=== PATIENT | male | born 1945 | race Caucasian/White ===

== ENCOUNTER 2017-07-19 10:38 | Emergency (ER) | payer MEDICARE ==
--- NOTE | 2017-07-19 10:44 | EDM.PDOC ---
ED HPI GENERAL MEDICAL PROBLEM - General Chief Complaint: Respiratory Problem Stated Complaint: DIFF BREATHING Time Seen by Provider: 07/19/17 10:44 Source of Information: Reports: Patient - History of Present Illness INITIAL COMMENTS - FREE TEXT/NARRATIVE: HISTORY AND PHYSICAL: History of present illness: [Patient with history of COPD presents with shortness of breath after a short ambulation of 15-20 feet on arrival, he has seen his new primary care provider Dr. Geiger placed him on a steroid and antibiotic for bronchitis, however it is learned and I'm not sure if Dr. Geiger new this that the patient had discontinued his Advair and recently moved from [facility] stopping the Advair, previous CT scan of the chest was read as essentially benign as they were looking for a pulmonary nodule that was seen on chest x-ray however however there is no mention of COPD/emphysema/fibrosis which he does significant emphysema changes as well as fibrosis No fever nausea vomiting chills sweats no chest pain headache dizziness palpitation no bowel or urine symptoms ] Patient does have Advair, DuoNeb's, albuterol nebs at his disposal he just has not been using them since moving from [place] as he had felt that moving from [place] would fix his lungs Review of systems: As per history of present illness and below otherwise all systems reviewed and negative. Past medical history: As per history of present illness and as reviewed below otherwise noncontributory. Surgical history: As per history of present illness and as reviewed below otherwise noncontributory. Social history: No reported history of drug or alcohol abuse. Family history: As per history of present illness and as reviewed below otherwise noncontributory. Physical exam: HEENT: Atraumatic, normocephalic, pupils reactive, negative for conjunctival pallor or scleral icterus, mucous membranes moist, throat clear, neck supple, nontender, trachea midline. Lungs: Clear to auscultation, breath sounds equal bilaterally, chest nontender. Heart: S1S2, regular, negative for clicks, rubs, or JVD. Abdomen: Soft, nondistended, nontender. Negative for masses or hepatosplenomegaly. Negative for costovertebral tenderness. Pelvis: Stable nontender. Genitourinary: Deferred. Rectal: Deferred. Extremities: Atraumatic, negative for cords or calf pain. Neurovascular unremarkable. Neuro: Awake, alert, oriented. Cranial nerves II through XII unremarkable. Cerebellum unremarkable. Motor and sensory unremarkable throughout. Exam nonfocal. Diagnostics: [CBC CMP UA troponin BN peptide influenza EKG chest 1 view ] Therapeutics: [DuoNeb Solu-Medrol 125 mg IV Normal saline 500 mL bolus ] Impression: [Paraseptal Emphysema Pulmonary fibrosis Medication noncompliance Definitive disposition and diagnosis as appropriate pending reevaluation and review of above. - Related Data Allergies Allergy/AdvReac Type Severity Reaction Status Date / Time No Known Allergies Allergy Verified 07/19/17 10:47 Home Meds: Home Meds Lisinopril/Hydrochlorothiazide [Lisinopril-Hctz 20-25 mg Tab] 07/19/17 [History ] ED ROS GENERAL - Review of Systems Review Of Systems: ROS reveals no pertinent complaints other than HPI. ED EXAM, GENERAL - Physical Exam Exam: See Below Course - Vital Signs Last Recorded V/S: Last Vital Signs Temp 98.9 F 07/19/17 10:48 Pulse 103 H 07/19/17 10:48 Resp 20 07/19/17 10:48 BP 128/62 07/19/17 10:48 Pulse Ox 94 L 07/19/17 10:48 - Orders/Labs/Meds Orders: Active Orders 24 hr Category Date Time Status EKG Documentation Completion [RC] STAT Care 07/19/17 10:42 Active RT Aerosol Therapy [RC] ASDIRECTED Care 07/19/17 10:52 Active CTA Chest W WO Contrast [Ang Chest] [CT] Stat Exams 07/19/17 12:40 Taken Chest 1V Frontal [CR] Stat Exams 07/19/17 10:42 Taken Sodium Chloride 0.9% [Normal Saline] 500 ml Med 07/19/17 11:00 Active IV STAT Medication Orders Sodium Chloride (Normal Saline) 500 mls @ 999 mls/hr IV STAT LILIANA Last Admin: 07/19/17 11:07 Dose: 999 mls/hr Labs: Laboratory Tests 07/19/17 07/19/17 07/19/17 Range/Units 11:10 11:10 11:10 WBC 7.14 (4.0-11.0) K/uL RBC 4.46 L (4.50-5.90) M/uL Hgb 13.1 (13.0-17.0) g/dL Hct 39.1 (38.0-50.0) % MCV 87.7 (80.0-98.0) fL MCH 29.4 (27.0-32.0) pg MCHC 33.5 (31.0-37.0) g/dL RDW Std Deviation 45.5 (28.0-62.0) fl RDW Coeff of Abhay 14 (11.0-15.0) % Plt Count 209 (150-400) K/uL MPV 10.10 (7.40-12.00) fL Neut % (Auto) 67.3 (48.0-80.0) % Lymph % (Auto) 19.9 (16.0-40.0) % [place] % (Auto) 8.7 (0.0-15.0) % Eos % (Auto) 3.5 (0.0-7.0) % Baso % (Auto) 0.6 (0.0-1.5) % Neut # (Auto) 4.8 (1.4-5.7) K/uL Lymph # (Auto) 1.4 (0.6-2.4) K/uL [place] # (Auto) 0.6 (0.0-0.8) K/uL Eos # (Auto) 0.3 (0.0-0.7) K/uL Baso # (Auto) 0.0 (0.0-0.1) K/uL Nucleated RBC % 0.0 /100WBC Nucleated RBCs # 0 K/uL INR 0.96 D-Dimer, Quantitative (0.0-0.52) mg/LFEU Sodium 138 (136-146) mmol/L Potassium 3.8 (3.5-5.1) mmol/L Chloride 102 (98-110) mmol/L Carbon Dioxide 24 (21-31) mmol/L BUN 22 (6.0-23.0) mg/dL Creatinine 1.2 (0.6-1.5) mg/dL Est Cr Clr Drug Dosing 55.42 mL/min Estimated GFR (MDRD) 59.9 ml/min Glucose 244 H (60-110) mg/dL Calcium 9.7 (8.8-10.8) mg/dL Total Bilirubin 0.5 (0.1-1.5) mg/dL AST 21 (5-40) IU/L ALT 24 (8-54) IU/L Alkaline Phosphatase 47 (40-150) Creatine Kinase 120 (9-236) IU/L CK-MB (CK-2) 2.8 (0-6.6) ng/ml Troponin I < 0.10 (0.0-0.29) NG/ML B-Natriuretic Peptide (<100) PG/ML Total Protein 6.9 (6.0-8.0) g/dL Albumin 3.9 (3.4-4.8) g/dL Globulin 3.0 (2.0-3.5) g/dL Albumin/Globulin Ratio 1.3 (1.3-2.8) Urine Color Urine Appearance Urine pH (5.0-8.0) Ur Specific [place] (1.001-1.035) Urine Protein (NEGATIVE) mg/dL Urine Glucose (UA) (NEGATIVE) mg/dL Urine Ketones (NEGATIVE) mg/dL Urine Occult Blood (NEGATIVE) Urine Nitrite (NEGATIVE) Urine Bilirubin (NEGATIVE) Urine Urobilinogen (<2.0) EU/dL Ur Leukocyte Esterase (NEGATIVE) Urine RBC (0-2/HPF) Urine WBC (0-5/HPF) Ur Epithelial Cells (NONE-FEW) Urine Bacteria (NEGATIVE) 07/19/17 07/19/17 07/19/17 Range/Units 11:10 11:20 12:49 WBC (4.0-11.0) K/uL RBC (4.50-5.90) M/uL Hgb (13.0-17.0) g/dL Hct (38.0-50.0) % MCV (80.0-98.0) fL MCH (27.0-32.0) pg MCHC (31.0-37.0) g/dL RDW Std Deviation (28.0-62.0) fl RDW Coeff of Abhay (11.0-15.0) % Plt Count (150-400) K/uL MPV (7.40-12.00) fL Neut % (Auto) (48.0-80.0) % Lymph % (Auto) (16.0-40.0) % [place] % (Auto) (0.0-15.0) % Eos % (Auto) (0.0-7.0) % Baso % (Auto) (0.0-1.5) % Neut # (Auto) (1.4-5.7) K/uL Lymph # (Auto) (0.6-2.4) K/uL [place] # (Auto) (0.0-0.8) K/uL Eos # (Auto) (0.0-0.7) K/uL Baso # (Auto) (0.0-0.1) K/uL Nucleated RBC % /100WBC Nucleated RBCs # K/uL INR D-Dimer, Quantitative 0.71 H (0.0-0.52) mg/LFEU Sodium (136-146) mmol/L Potassium (3.5-5.1) mmol/L Chloride (98-110) mmol/L Carbon Dioxide (21-31) mmol/L BUN (6.0-23.0) mg/dL Creatinine (0.6-1.5) mg/dL Est Cr Clr Drug Dosing mL/min Estimated GFR (MDRD) ml/min Glucose (60-110) mg/dL Calcium (8.8-10.8) mg/dL Total Bilirubin (0.1-1.5) mg/dL AST (5-40) IU/L ALT (8-54) IU/L Alkaline Phosphatase (40-150) Creatine Kinase (9-236) IU/L CK-MB (CK-2) (0-6.6) ng/ml Troponin I (0.0-0.29) NG/ML B-Natriuretic Peptide < 15 (<100) PG/ML Total Protein (6.0-8.0) g/dL Albumin (3.4-4.8) g/dL Globulin (2.0-3.5) g/dL Albumin/Globulin Ratio (1.3-2.8) Urine Color YELLOW Urine Appearance CLEAR Urine pH 6.0 (5.0-8.0) Ur Specific [place] 1.015 (1.001-1.035) Urine Protein NEGATIVE (NEGATIVE) mg/dL Urine Glucose (UA) 500 H (NEGATIVE) mg/dL Urine Ketones NEGATIVE (NEGATIVE) mg/dL Urine Occult Blood TRACE-INTACT (NEGATIVE) Urine Nitrite NEGATIVE (NEGATIVE) Urine Bilirubin NEGATIVE (NEGATIVE) Urine Urobilinogen 0.2 (<2.0) EU/dL Ur Leukocyte Esterase NEGATIVE (NEGATIVE) Urine RBC 0-1 (0-2/HPF) Urine WBC NONE SEEN (0-5/HPF) Ur Epithelial Cells RARE (NONE-FEW) Urine Bacteria RARE (NEGATIVE) Meds: Medications Generic Name Dose Route Start Last Admin Trade Name Freq PRN Reason Stop Dose Admin Sodium Chloride 500 mls @ 999 mls/hr 07/19/17 11:00 07/19/17 11:07 Normal Saline IV 999 mls/hr STAT LILIANA Administration Discontinued Medications Generic Name Dose Route Start Last Admin Trade Name Freq PRN Reason Stop Dose Admin Albuterol/Ipratropium 3 ml 07/19/17 10:51 07/19/17 11:06 Duoneb 3.0-0.5 Mg/3 Ml NEB 07/19/17 10:52 3 ml ONETIME ONE Administration Iopamidol 50 ml 07/19/17 13:09 07/19/17 13:10 Isovue-370 (76%) IV 07/19/17 13:10 50 ml ONETIME STA Administration Methylprednisolone Sodium Succinate 125 mg 07/19/17 10:51 07/19/17 11:06 Solu-Medrol IVPUSH 07/19/17 10:52 125 mg ONETIME ONE Administration Departure - Departure Time of Disposition: 14:03 Disposition: Home, Self-Care 01 Condition: Fair Clinical Impression: Paraseptal emphysema, Pulmonary fibrosis - Discharge Information Referrals: Michael Geiger MD [Primary Care Provider] - Forms: ED Department Discharge Additional Instructions: Continue Advair as directed DuoNeb scheduled 3 times daily Albuterol nebs every 4 hours as needed Medrol Dosepak as directed Follow-up with Dr. Geiger in 2 weeks, consider consultation with bone char puller with your primary care provider [address] [id number] The following information is given to patients seen in the emergency department who are being discharged to home. This information is to outline your options for follow-up care. We provide all patients seen in our emergency department with a follow-up referral. The need for follow-up, as well as the timing and circumstances, are variable depending upon the specifics of your emergency department visit. If you don't have a primary care physician on staff, we will provide you with a referral. We always advise you to contact your personal physician following an emergency department visit to inform them of the circumstance of the visit and for follow-up with them and/or the need for any referrals to a consulting specialist. The emergency department will also refer you to a specialist when appropriate. This referral assures that you have the opportunity for follow-up care with a specialist. All of these measure are taken in an effort to provide you with optimal care, which includes your follow-up. Under all circumstances we always encourage you to contact your private physician who remains a resource for coordinating your care. When calling for follow-up care, please make the office aware that this follow-up is from your recent emergency room visit. If for any reason you are refused follow-up, please contact the [facility] emergency department at and asked to speak to the emergency department charge nurse. - My Orders Last 24 Hours: My Active Orders 07/19/17 10:42 EKG Documentation Completion [RC] STAT Chest 1V Frontal [CR] Stat 07/19/17 10:52 RT Aerosol Therapy [RC] ASDIRECTED 07/19/17 11:00 Sodium Chloride 0.9% [Normal Saline] 500 ml IV STAT 07/19/17 12:40 CTA Chest W WO Contrast [Ang Chest] [CT] Stat - Assessment/Plan Last 24 Hours: My Active Orders 07/19/17 10:42 EKG Documentation Completion [RC] STAT Chest 1V Frontal [CR] Stat 07/19/17 10:52 RT Aerosol Therapy [RC] ASDIRECTED 07/19/17 11:00 Sodium Chloride 0.9% [Normal Saline] 500 ml IV STAT 07/19/17 12:40 CTA Chest W WO Contrast [Ang Chest] [CT] Stat
[2017-07-19] MEDS ORDERED: Albuterol/Ipratropium 3.0-0.5 MG/3 ML Neb Soln NEB ONE (10:51)
[2017-07-19] MEDS ORDERED: methylPREDNISolone Sodium Succinate 125 MG/2 ML SDV IVPUSH ONE (10:51)
[2017-07-19] MEDS ORDERED: Sodium Chloride 0.9% 500 ML IV SCH (11:00)
[2017-07-19 11:41] LABS: CHLORIDE,CL 102 mmol/L (98-110); SODIUM,NA 138 mmol/L (136-146)
[2017-07-19] MEDS ORDERED: Iopamidol 755 MG/ML 50 ML Bottle IV STA (13:09)
--- NOTE | 2017-07-21 17:10 | CR ---
EXAM DATE: 07/19/17 PATIENT'S AGE: 72 Patient: DOREEN HILL Facility: [place], [place] Site . Site : 1945 Study: XRay Chest [id number] 11:12:04 AM Ordering Physician: Nely Ordonez Final Report: INDICATION: Pain. Difficulty breathing. Technique : AP portable chest x-ray. FINDINGS: Lungs are hyperinflated or there has been a deep inspiration. Plate and screw fixation lower cervical and upper thoracic spine. Heart size normal. Mild nodular interstitial prominence in both lungs nonspecific but would be favored to be fibrotic. No focal dense infiltrate or consolidation in either lung. Minimal pleural thickening rather focally in the left lower lateral chest. Chest otherwise unremarkable. Dictated by Austin Renee MD @ Jul 19 2017 11:19AM (Electronic Signature) Report Signed by Proxy. AMRIT
--- NOTE | 2017-07-21 17:31 | CT ---
EXAM DATE: 07/19/17 PATIENT'S AGE: 72 Patient: DOREEN HILL Facility: [place], [place] Site . Site : 1945 Study: CT Chest Angio [id number]/17/2018 1:13:53 PM Ordering Physician: Nely Ordonez Final Report: INDICATION: Chest pain. Positive D-dimer. Evaluate for pulmonary embolus. TECHNIQUE: CT chest performed after IV injection of 15 mL of Isovue-[address] pulmonary angiogram protocol. FINDINGS: Moderate osteopenia. Moderate paraseptal emphysema both lungs with scattered interstitial fibrotic lung disease along the periphery of both lungs. The lower chest from the level of the lower heart and lung bases are not included on this exam. No pulmonary embolus. Increased number of small clustered left anterior mediastinal prevascular lymph nodes. Few small to mildly enlarged AP window and paraesophageal lymph nodes along the aortic arch as well as a mildly enlarged right precarinal/paratracheal lymph node. Few small to mildly prominent bilateral hilar and subcarinal mediastinal lymph nodes. Remainder negative. IMPRESSION: 1. No pulmonary embolus. 2. Mild lymph node prominence in the mediastinum and hilar regions nonspecific but may be inflammatory or reactive in nature. 3. Moderate paraseptal emphysema. 4. 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 Please note that all CT scans at this facility use dose modulation, iterative reconstruction, and/or weight-based dosing when appropriate to reduce radiation dose to as low as reasonably achievable. Dictated by Austin Renee MD @ Jul 19 2017 1:37PM (Electronic Signature) Report Signed by Proxy. AMRIT
== END 2017-07-19 14:20 | disposition home or self-care (01) ==
LOC: MW.ED 10:38
DX: J43.9 Emphysema, unspecified (principal); J84.10 Pulmonary fibrosis, unspecified
CPT/HCPCS: 36415; 71045; 71275; 80053; 81001; 82550; 82553; 83880; 84484; 85025; 85379; 85610; 87804; 93005; 94640; 96374; 99284; J2930; J7040; Q9967

== ENCOUNTER 2020-09-26 13:17 | Emergency (ER) | payer MEDICARE, OTHER ==
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
== END 2020-09-26 15:23 | disposition home or self-care (01) ==
LOC: MW.ED 13:17
DX: M54.2 Cervicalgia (principal); I10 Essential (primary) hypertension; Z79.899 Other long term (current) drug therapy; V49.40XA Driver injured in collision with unspecified motor vehicles in traffic accident, initial encounter; Y92.410 Unspecified street and highway as the place of occurrence of the external cause
CPT/HCPCS: 72125; 72125-26; 99284-25

== ENCOUNTER 2020-11-25 13:08 | Emergency (ER) | payer MEDICARE, OTHER ==
[2020-11-25] MEDS ORDERED: Ketorolac 30 MG/ML SDV IM ONE (13:52)
--- NOTE | 2020-11-25 13:55 | EDM.PDOC ---
ED HPI GENERAL MEDICAL PROBLEM - General Chief Complaint: Lower Extremity Injury/Pain Stated Complaint: L SIDE PAIN Time Seen by Provider: 11/25/20 13:29 Source of Information: Reports: Patient History Limitations: Reports: No Limitations - History of Present Illness INITIAL COMMENTS - FREE TEXT/NARRATIVE: Patient is a 75-year-old male who presents today for left lower back pain. Patient he recurrently has low back pain [facility] his [facility]. Patient states she has been most relaxed was done out at home he also tried ICI pack. He denies any urinary incontinence leg weakness or saddle anesthesia. Patient does feel similar to his back pain he denies any falls or injuries to the back. Patient states he feels achy does not radiate and is made worse with bending over. left hip Pain Score (Numeric/FACES): 10 - Related Data Allergies Allergy/AdvReac Type Severity Reaction Status Date / Time No Known Allergies Allergy Verified 11/25/20 13:31 Home Meds: Home Meds Lisinopril/Hydrochlorothiazide [Lisinopril-Hctz 20-25 mg Tab] 1 tab .ROUTE ASDIRECTED 07/19/17 [History] Insulin Degludec [Tresiba] 100 unit SQ 09/26/20 [History] metFORMIN [Glucophage XR] 500 mg PO BIDMEALS 09/26/20 [History] Past Medical History Cardiovascular History: Reports: Hypertension Respiratory History: Reports: COPD Endocrine/Metabolic History: Reports: Diabetes, Type II - Infectious Disease History Infectious Disease History: Reports: Chicken Pox, Measles, Mumps - Past Surgical History HEENT Surgical History: Reports: Other (See Below) Other HEENT Surgeries/Procedures: jaw surgery , neck surgery GI Surgical History: Reports: Cholecystectomy Musculoskeletal Surgical History: Reports: Other (See Below) Other Musculoskeletal Surgeries/Procedures:: back surgery Social & Family History - Family History Family Medical History: No Pertinent Family History - Caffeine Use Caffeine Use: Reports: None Review of Systems - Review of Systems Review Of Systems: See Below Constitutional: Reports: No Symptoms Eyes: Reports: No Symptoms Ears: Reports: No Symptoms Nose: Reports: No Symptoms Mouth/Throat: Reports: No Symptoms Respiratory: Reports: No Symptoms Cardiovascular: Reports: No Symptoms GI/Abdominal: Reports: No Symptoms Genitourinary: Reports: No Symptoms Musculoskeletal: Reports: Back Pain Skin: Reports: No Symptoms Neurological: Reports: No Symptoms Psychiatric: Reports: No Symptoms ED EXAM, GENERAL - Physical Exam Exam: See Below Exam Limited By: No Limitations General Appearance: Alert, WD/WN Neck: Normal Inspection, Supple, Non-Tender Respiratory/Chest: No Respiratory Distress Cardiovascular: Normal Peripheral Pulses GI/Abdominal: Normal Bowel Sounds Back Exam: Normal Inspection, Paraspinal Tenderness. No: Full Range of Motion, Vertebral Tenderness Extremities: Normal Inspection, Normal Range of Motion Neurological: Alert, Oriented. No: Normal Gait Course - Vital Signs Last Recorded V/S: Last Vital Signs Temp 97 F 11/25/20 13:32 Pulse 77 11/25/20 13:32 Resp 18 11/25/20 13:32 BP 161/67 H 11/25/20 13:32 Pulse Ox 97 11/25/20 13:32 - Orders/Labs/Meds Meds: Medications Discontinued Medications Generic Name Dose Route Start Last Admin Trade Name Primitivoq PRN Reason Stop Dose Admin Ketorolac Tromethamine 30 mg 11/25/20 13:52 11/25/20 14:10 Ketorolac 30 Mg/Ml Sdv IM 11/25/20 13:53 30 mg ONETIME ONE Administration Oxycodone/Acetaminophen 1 tab 11/25/20 14:58 11/25/20 15:03 Acetaminophen/Oxycodone 325-5 Mg Tab PO 11/25/20 14:59 1 tab ONETIME ONE Administration - Re-Assessments/Exams Free Text/Narrative Re-Assessment/Exam: 11/25/20 15:08 Given some Toradol to help out the pain. Patient states that when he got up to move the pain can get reaggravated and is now back patient with your home she has been on Percocet the pain again is a bit improved patient be discharged with Percocet. Departure - Departure Time of Disposition: 15:08 Disposition: Home, Self-Care 01 Condition: Good Clinical Impression: Back pain - Discharge Information *PRESCRIPTION DRUG MONITORING PROGRAM REVIEWED*: Not Applicable *COPY OF PRESCRIPTION DRUG MONITORING REPORT IN PATIENT TOMAS: Not Applicable Instructions: Acute Back Pain, Adult Referrals: Michael Geiger MD [Primary Care Provider] - Forms: ED Department Discharge Additional Instructions: The following information is given to patients seen in the emergency department who are being discharged to home. This information is to outline your options for follow-up care. We provide all patients seen in our emergency department with a follow-up referral. The need for follow-up, as well as the timing and circumstances, are variable depending upon the specifics of your emergency department visit. If you don't have a primary care physician on staff, we will provide you with a referral. We always advise you to contact your personal physician following an emergency department visit to inform them of the circumstance of the visit and for follow-up with them and/or the need for any referrals to a consulting specialist. The emergency department will also refer you to a specialist when appropriate. This referral assures that you have the opportunity for follow-up care with a specialist. All of these measure are taken in an effort to provide you with optimal care, which includes your follow-up. Under all circumstances we always encourage you to contact your private physician who remains a resource for coordinating your care. When calling for follow-up care, please make the office aware that this follow-up is from your recent emergency room visit. If for any reason you are refused follow-up, please contact the [facility] at and asked to speak to the emergency department charge nurse. Please follow up with your primary care physician. If you do not have a primary care physician, see below: [facility] [address] [place] [id number] [facility] [address] [place] [id number] You were seen here for left lower back pain after cleaning your garage. You have no other signs on exam we give you pain meds that you can try to take at home to help out. If you develop any loss of the bladder weakness in your lower extremities or numbness in your tailbone area to return to the ED otherwise follow-up to primary care physician. Sepsis Event Note (ED) - Evaluation Sepsis Screening Result: No Definite Risk - Focused Exam Vital Signs: Vital Signs Temp Pulse Resp BP Pulse Ox 11/25/20 13:32 97 F 77 18 161/67 H 97 - Assessment/Plan Plan: Patient is a 75-year-old male presents today for low back pain. Patient presents within normal limits has no other complaints and is aggravated by cleaning garage. Will attempt pain control and reassess patient.
[2020-11-25] MEDS ORDERED: Acetaminophen/oxyCODONE 325-5 MG Tab PO ONE (14:58)
== END 2020-11-25 15:20 | disposition home or self-care (01) ==
LOC: MW.ED 13:08
DX: M54.5 Low back pain (principal); I10 Essential (primary) hypertension; J44.9 Chronic obstructive pulmonary disease, unspecified; E11.9 Type 2 diabetes mellitus without complications; Z79.4 Long term (current) use of insulin; Z79.899 Other long term (current) drug therapy
CPT/HCPCS: 96372; 99283; A9270; J1885